=== PATIENT | male | born 1955 | race Caucasian/White ===

== ENCOUNTER 2016-12-28 11:37 | Emergency (ER) | payer OTHER ==
[~2016-12-28] VITALS: Ht 162.6 cm; Wt 63.5 kg
[2016-12-28 12:53] VITALS: BP 164/104
== END 2016-12-28 12:50 | disposition home or self-care (01) ==
LOC: ED 11:37
DX: F10.129 Alcohol abuse with intoxication, unspecified (principal); I10 Essential (primary) hypertension
CPT/HCPCS: J7030